=== PATIENT | male | born 1965 | race Caucasian/White ===

== ENCOUNTER 2023-12-17 11:35 | Inpatient (IN) | payer OTHER ==
[~2023-12-17] VITALS: Ht 188 cm; Wt 108.9 kg
[2023-12-17 12:30] LABS: HEMOGLOBIN. 13.6 g/dL (14.0-18.0); MEAN CORPUSCULAR HEMOGLOBIN 31.9 pg (28.0-32.0); MEAN CORPUSCULAR HGB CONC 34.1 g/dL (31.0-37.0); MEAN CORPUSCULAR VOLUME 93.5 fL (80.0-94.0); MEAN PLATELET VOLUME 7.7 fl (7.4-10.4); PLATELET 160 x1000/uL (130-400); RED BLOOD CELL COUNT 4.28 mill/uL (4.7-6.1); RED CELL DISTRIBUTION WIDTH 14.1 % (11.6-14.6); WHITE BLOOD COUNT 17.9 x1000/uL (4.5-11.0)
[2023-12-17 12:35] LABS: DIFFERENTIAL COMMENT 1
[2023-12-17] MEDS: ONDANSETRON HCL 4MG/2ML INJ IV STA (12:39)
[2023-12-17] MEDS: MORPHINE SULFATE 4 MG/ML CPJ (NOT FOR IM USE) IV STA (12:39)
[2023-12-17] MEDS: SODIUM CHLORIDE 0.9% 1,000 ML IV ONE ×2 (12:39→15:30)
[2023-12-17 12:42] LABS: PARTIAL THROMBOPLASTIN TIME 22.9 sec (23.4-31.0); PROTHROMBIN TIME 11.4 sec (9.6-11.0)
[2023-12-17 12:44] LABS: ALANINE AMINOTRANSFERASE 25 IU/L (10-49); ALBUMIN 3.8 g/dL (3.2-4.8); ASPARTATE AMINOTRANSFERASE 19 IU/L (<34); BILIRUBIN TOTAL 1.6 mg/dL (0.1-1.0); CALCIUM 8.6 mg/dL (8.7-10.4); CARBON DIOXIDE 21 mEq/L (21-32); CHLORIDE 101 mEq/L (98-107); GLUCOSE 170 mg/dL (70-105); POTASSIUM 3.2 mEq/L (3.5-5.1); SODIUM 133 mEq/L (136-145); TROPONIN I HIGH SENSITIVITY 6 ng/L (3.0-53); UREA NITROGEN BLOOD 15 mg/dL (9-23)
[2023-12-17 12:45] LABS: ETHANOL BLOOD < 10 mg/dL (<10)
[2023-12-17 13:30] LABS: PLATELET ESTIMATE NORMAL
[2023-12-17] MEDS: HYDROMORPHONE HCL/PF 2MG/ML CPJ IV ONE ×2 (14:37→16:50)
[2023-12-17] MEDS: PIPERACILLIN/TAZO 3.375G/50ML 50 ML IV SCH (15:30)
[2023-12-17] MEDS: IOHEXOL-350 100 ML BOTTLE ONE (19:47)
[2023-12-17 20:00] VITALS: BP 150/85; PULSE 99; RESP 17; TEMP 98.4
[2023-12-17] MEDS ORDERED: DEXTROSE 50% WATER 50ML SYRINGE IV PRN (21:15)
[2023-12-17] MEDS ORDERED: IPRATROPIUM/ALBUTEROL 0.5-3(2.5)MG/3ML NEB HHN PRN (21:15)
[2023-12-17 21:30] LABS: TROPONIN I HIGH SENSITIVITY 7 ng/L (3.0-53)
[2023-12-17] MEDS: POTASSIUM CHLORIDE 20MEQ TABLET SR PO NR (21:43)
[2023-12-17] MEDS ORDERED: NALOXONE HCL 0.4MG/ML VIAL IV PRN (21:45)
[2023-12-17] MEDS ORDERED: VANCOMYCIN 1.5GM/250ML IV NR (22:00)
[2023-12-17 22:13] VITALS: BP 145/89; PULSE 108; RESP 18; TEMP 98.6
[2023-12-17] MEDS: SODIUM CHLORIDE 0.9% 1,000 ML IV SCH (23:33)
[2023-12-17] MEDS ORDERED: HYDRALAZINE 20MG/ML VIAL IV PRN (23:45)
[2023-12-17] MEDS: MORPHINE SULFATE 2 MG/ML CPJ (NOT FOR IM USE) IV PRN (23:53)
[2023-12-18 01:47] LABS: BILIRUBIN DIRECT 0.4 mg/dL (<=3.0); IRON 17 ug/dL (65-175); TOTAL IRON BINDING CAPACITY 205 ug/dl (250-425)
[2023-12-18] MEDS: VANCOMYCIN 1.5GM/250ML IV NR (02:34)
[2023-12-18 02:49] LABS: CREATINE KINASE 62 IU/L (46-171); TROPONIN I HIGH SENSITIVITY 6 ng/L (3.0-53)
[2023-12-18 02:51] LABS: CREATINE KINASE MB FRACTION < 0.0 ng/mL (0.5-3.6)
[2023-12-18] MEDS ORDERED: PIPERACILLIN/TAZO 3.375G/50ML 50 ML IV SCH (06:00)
[2023-12-18] MEDS: PIPERACILLIN/TAZO 3.375G/50ML 50 ML IV SCH (06:33)
[2023-12-18] MEDS: BLOOD SUGAR DIAGNOSTIC STRIP TEST SCH (06:35)
[2023-12-18 08:00] VITALS: BP 137/80; RESP 20; TEMP 98
[2023-12-18] MEDS: PANTOPRAZOLE SODIUM 40 MG/VIAL IV SCH (09:00)
[2023-12-18] MEDS: ENOXAPARIN 40MG/0.4ML SYR SUBCUT SCH (09:24)
[2023-12-18 11:00] LABS: BILIRUBIN DIRECT 0.5 mg/dL (<=3.0); CHOLESTEROL 143 mg/dL (<200); CREATINE KINASE 55 IU/L (46-171); HDL CHOLESTEROL 52 mg/dL (>55); LDL CHOLESTEROL 76 mg/dL (5-100); PHOSPHORUS 1.8 mg/dL (2.5-4.9); T4 FREE 1.17 ng/dL (0.89-1.76); THYROID STIMULATING HORMONE 2.92 uIU/mL (0.55-4.78); TRIGLYCERIDE 56 mg/dL (0-150); TROPONIN I HIGH SENSITIVITY 5 ng/L (3.0-53)
[2023-12-18 11:02] LABS: CREATINE KINASE MB FRACTION < 0.0 ng/mL (0.5-3.6)
[2023-12-18] MEDS: VANCOMYCIN 1G PREMIX 200 ML IV SCH (11:59)
[2023-12-18 12:00] VITALS: BP 128/82; PULSE 98; RESP 20; TEMP 98.3
[2023-12-18 15:50] LABS: FERRITIN 279 ng/mL (22-322); FOLIC ACID (FOLATE) SERUM 4.28 ng/mL (>5.38); HEPATITIS A AB IGM NEGATIVE (Negative); HEPATITIS B CORE AB IGM NEGATIVE (Negative); HEPATITIS B SURFACE ANTIGEN NEGATIVE (Negative); HEPATITIS C AB NON REACTIVE (Neg) (Negative); VITAMIN B12 SERUM 257 pg/mL (211-911)
[2023-12-18] MEDS ORDERED: VANCOMYCIN 1G PREMIX 200 ML IV SCH (16:00)
[2023-12-18 20:00] VITALS: BP 149/77; PULSE 111; RESP 20; TEMP 101.7
[2023-12-18] MEDS ORDERED: ACETAMINOPHEN 650MG SUPP PR PRN (20:45)
[2023-12-19] VITALS: BP 133/83; PULSE 110; RESP 20; TEMP 98.8
[2023-12-19 04:00] VITALS: BP 138/88; PULSE 112; RESP 20; TEMP 98.8
[2023-12-19] MEDS: PIPERACILLIN/TAZO 3.375G/50ML 50 ML IV SCH (06:06)
[2023-12-19 06:59] LABS: HEMATOCRIT. 37.2 % (42.0-52.0); HEMOGLOBIN. 12.9 g/dL (14.0-18.0); MEAN CORPUSCULAR HEMOGLOBIN 32.2 pg (28.0-32.0); MEAN CORPUSCULAR HGB CONC 34.8 g/dL (31.0-37.0); MEAN CORPUSCULAR VOLUME 92.5 fL (80.0-94.0); MEAN PLATELET VOLUME 8.5 fl (7.4-10.4); PLATELET 157 x1000/uL (130-400); RED BLOOD CELL COUNT 4.02 mill/uL (4.7-6.1); WHITE BLOOD COUNT 16.8 x1000/uL (4.5-11.0)
[2023-12-19 07:03] LABS: DIFFERENTIAL COMMENT 1
[2023-12-19 07:07] LABS: ALANINE AMINOTRANSFERASE 14 IU/L (10-49); ALBUMIN 3.6 g/dL (3.2-4.8); ASPARTATE AMINOTRANSFERASE 13 IU/L (<34); BILIRUBIN TOTAL 1.1 mg/dL (0.1-1.0); CALCIUM 8.7 mg/dL (8.7-10.4); CARBON DIOXIDE 25 mEq/L (21-32); CHLORIDE 100 mEq/L (98-107); GLUCOSE 102 mg/dL (70-105); POTASSIUM 3.7 mEq/L (3.5-5.1); PROTEIN TOTAL 6.3 g/dL (6.0-8.3); SODIUM 131 mEq/L (136-145); UREA NITROGEN BLOOD 15 mg/dL (9-23)
[2023-12-19] MEDS: DEXT 5%/LACTATED RINGERS 1,000 ML IV SCH (09:22)
[2023-12-19 12:00] VITALS: BP_SYST 117; BP_SYST 142; BP_DIAS 78; BP_DIAS 82; PULSE 101; PULSE 94; RESP 20; TEMP 97; TEMP 98.4
[2023-12-19] MEDS: DEXT 5%/0.9% NACL 1,000 ML IV SCH (13:19)
[2023-12-19 15:19] LABS: PLATELET ESTIMATE NORMAL
[2023-12-19 16:00] VITALS: BP 129/82; PULSE 95; RESP 20; TEMP 98
[2023-12-19] MEDS: KETOROLAC 15MG/ML VIAL IV PRN (19:55)
[2023-12-19 20:00] VITALS: BP 146/90; PULSE 101; RESP 20; TEMP 99.6
[2023-12-20] VITALS: BP 129/79; PULSE 80; RESP 19; TEMP 98.7
[2023-12-20 04:00] VITALS: BP 132/88; PULSE 88; RESP 20; TEMP 99.8
[2023-12-20 05:56] LABS: ALANINE AMINOTRANSFERASE 14 IU/L (10-49); ALBUMIN 3.4 g/dL (3.2-4.8); ASPARTATE AMINOTRANSFERASE 16 IU/L (<34); CALCIUM 8.4 mg/dL (8.7-10.4); CARBON DIOXIDE 26 mEq/L (21-32); CHLORIDE 103 mEq/L (98-107); CREATININE 0.9 mg/dL (0.6-1.3); GLUCOSE 111 mg/dL (70-105); POTASSIUM 3.4 mEq/L (3.5-5.1); PROTEIN TOTAL 6.3 g/dL (6.0-8.3); SODIUM 134 mEq/L (136-145); UREA NITROGEN BLOOD 16 mg/dL (9-23)
[2023-12-20 06:42] LABS: HEMATOCRIT. 35.3 % (42.0-52.0); HEMOGLOBIN. 12.2 g/dL (14.0-18.0); MEAN CORPUSCULAR HEMOGLOBIN 31.9 pg (28.0-32.0); MEAN CORPUSCULAR HGB CONC 34.5 g/dL (31.0-37.0); MEAN CORPUSCULAR VOLUME 92.4 fL (80.0-94.0); MEAN PLATELET VOLUME 8.1 fl (7.4-10.4); PLATELET 163 x1000/uL (130-400); RED BLOOD CELL COUNT 3.82 mill/uL (4.7-6.1); RED CELL DISTRIBUTION WIDTH 13.8 % (11.6-14.6); WHITE BLOOD COUNT 9.5 x1000/uL (4.5-11.0)
[2023-12-20 06:46] LABS: DIFFERENTIAL COMMENT 1
[2023-12-20 08:00] VITALS: BP 114/71; PULSE 78; RESP 18; TEMP 97.7
[2023-12-20 12:00] VITALS: BP 130/82; PULSE 84; RESP 18; TEMP 97.7
[2023-12-20] MEDS ORDERED: LIDOCAINE HCL 1% 20ML VIAL (Pyxis) INJ ONE (14:36)
[2023-12-20] MEDS ORDERED: SKIN ADHESIVE 0.7 GM EA TOP ONE (14:36)
[2023-12-20] MEDS ORDERED: BUPIVACAINE HCL/PF 0.5% (5MG/ML) 10ML ONE (14:36)
[2023-12-20 15:54] LABS: PLATELET ESTIMATE NORMAL
[2023-12-20 16:00] VITALS: BP 117/75; PULSE 81; RESP 18; TEMP 96.6
[2023-12-20 20:00] VITALS: BP 139/84; PULSE 63; RESP 19; TEMP 99.7
[2023-12-20] MEDS ORDERED: PROPOFOL 200MG/20ML VIAL IV ONE (20:30)
[2023-12-20] MEDS ORDERED: FENTANYL CITRATE/PF 50MCG/ML 2ML VIAL ONE (20:32)
[2023-12-20] MEDS ORDERED: MIDAZOLAM HCL 2 MG/2 ML VIAL ONE (20:32)
[2023-12-20] MEDS ORDERED: PHENYLEPHRINE HCL 10 MG/ML 1ML (IV VIAL) IV ONE (20:34)
[2023-12-20] MEDS ORDERED: ROCURONIUM BROMIDE 10MG/ML VIAL 5ML IV ONE (20:34)
[2023-12-20] MEDS ORDERED: SUCCINYLCHOLINE CHLORIDE 200MG/10ML IV ONE (20:34)
[2023-12-20] MEDS ORDERED: ONDANSETRON HCL 4MG/2ML INJ ONE (20:56)
[2023-12-20] MEDS ORDERED: DEXAMETHASONE 4MG/ML 1ML VIAL ONE (20:56)
[2023-12-20] MEDS ORDERED: GLYCOPYRROLATE 0.2 MG/ML 2ML VIAL ONE ×2 (20:57→22:46)
[2023-12-20] MEDS ORDERED: NEOSTIGMINE METHYLSULFATE 1MG/ML 10 ML VIAL ONE (20:57)
[2023-12-20] MEDS ORDERED: FENTANYL CITRATE/PF 50MCG/ML 2ML VIAL IV PRN (21:15)
[2023-12-20] MEDS ORDERED: ONDANSETRON HCL 4MG/2ML INJ IV PRN (21:15)
[2023-12-20] MEDS ORDERED: MEPERIDINE HCL/PF 25MG/ML CPJ IV PRN (21:15)
[2023-12-20] MEDS ORDERED: HYDROMORPHONE HCL/PF 2MG/ML CPJ IV PRN (21:15)
[2023-12-20] MEDS ORDERED: HYDROMORPHONE HCL/PF 2MG/ML CPJ ONE (21:24)
[2023-12-20] MEDS ORDERED: KETOROLAC 30MG/ML VIAL ONE (21:55)
[2023-12-21] VITALS (19 sets, daily range): BP systolic 108–134; BP diastolic 66–81; PULSE 72–88; RESP 14–20; TEMP 97.5–99.7
[2023-12-21] MEDS ORDERED: MORPHINE SULFATE 2 MG/ML CPJ (NOT FOR IM USE) IV PRN
[2023-12-21] MEDS ORDERED: MORPHINE SULFATE 4 MG/ML CPJ (NOT FOR IM USE) IV PRN
[2023-12-21 07:16] LABS: HEMATOCRIT. 34.8 % (42.0-52.0); MEAN CORPUSCULAR HGB CONC 34.5 g/dL (31.0-37.0); MEAN CORPUSCULAR VOLUME 92.5 fL (80.0-94.0); MEAN PLATELET VOLUME 7.5 fl (7.4-10.4); PLATELET 192 x1000/uL (130-400); RED BLOOD CELL COUNT 3.76 mill/uL (4.7-6.1); RED CELL DISTRIBUTION WIDTH 13.8 % (11.6-14.6); WHITE BLOOD COUNT 11.4 x1000/uL (4.5-11.0)
[2023-12-21 07:41] LABS: DIFFERENTIAL COMMENT 1
[2023-12-21 08:43] LABS: ALANINE AMINOTRANSFERASE 23 IU/L (10-49); ALBUMIN 3.3 g/dL (3.2-4.8); ASPARTATE AMINOTRANSFERASE 28 IU/L (<34); BILIRUBIN TOTAL 0.7 mg/dL (0.1-1.0); CALCIUM 8.4 mg/dL (8.7-10.4); CARBON DIOXIDE 27 mEq/L (21-32); CHLORIDE 105 mEq/L (98-107); CREATININE 0.9 mg/dL (0.6-1.3); GLUCOSE 136 mg/dL (70-105); PROTEIN TOTAL 6.3 g/dL (6.0-8.3); SODIUM 139 mEq/L (136-145); UREA NITROGEN BLOOD 21 mg/dL (9-23)
[2023-12-21] MEDS ORDERED: LIDOCAINE HCL 1% 10 MG/ML 10ML VIAL ONE (13:37)
[2023-12-21] MEDS ORDERED: IOHEXOL-300 50 ML BOTTLE IV ONE (13:38)
[2023-12-21] MEDS ORDERED: FENTANYL CITRATE/PF 50MCG/ML 2ML VIAL ONE (13:44)
[2023-12-21] MEDS: FENTANYL CITRATE/PF 50MCG/ML 2ML VIAL IV ONE (13:55)
[2023-12-21 18:39] LABS: PLATELET ESTIMATE NORMAL
[2023-12-21] MEDS: KETOROLAC 15MG/ML VIAL IV PRN (20:42)
[2023-12-22] VITALS: BP 131/77; PULSE 79; RESP 18; TEMP 98.1
[2023-12-22 04:00] VITALS: BP 128/83; PULSE 79; RESP 16; TEMP 98.1
[2023-12-22 07:34] LABS: CALCIUM 8.2 mg/dL (8.7-10.4); CARBON DIOXIDE 28 mEq/L (21-32); CHLORIDE 105 mEq/L (98-107); CREATININE 0.9 mg/dL (0.6-1.3); GLUCOSE 108 mg/dL (70-105); POTASSIUM 3.2 mEq/L (3.5-5.1); SODIUM 140 mEq/L (136-145); UREA NITROGEN BLOOD 17 mg/dL (9-23)
[2023-12-22 07:47] LABS: HEMATOCRIT. 35.2 % (42.0-52.0); HEMOGLOBIN. 11.8 g/dL (14.0-18.0); MEAN CORPUSCULAR HEMOGLOBIN 31.1 pg (28.0-32.0); MEAN CORPUSCULAR HGB CONC 33.6 g/dL (31.0-37.0); MEAN CORPUSCULAR VOLUME 92.4 fL (80.0-94.0); MEAN PLATELET VOLUME 7.5 fl (7.4-10.4); PLATELET 235 x1000/uL (130-400); RED BLOOD CELL COUNT 3.81 mill/uL (4.7-6.1); RED CELL DISTRIBUTION WIDTH 14.2 % (11.6-14.6); WHITE BLOOD COUNT 6.4 x1000/uL (4.5-11.0)
[2023-12-22 07:51] LABS: DIFFERENTIAL COMMENT 1
[2023-12-22 08:00] VITALS: BP 138/78; PULSE 74; RESP 18; TEMP 97.9
[2023-12-22] MEDS: FAMOTIDINE 20MG/2ML VIAL IV SCH (09:16)
[2023-12-22] MEDS ORDERED: METR-167 MT (09:55)
[2023-12-22] MEDS ORDERED: IBUP-2029 MT (09:55)
[2023-12-22] MEDS ORDERED: PANT40SU PO (09:55)
[2023-12-22] MEDS ORDERED: CIPR500S3 PO (09:55)
[2023-12-22 12:00] VITALS: BP 145/86; PULSE 73; RESP 18; TEMP 99.1
[2023-12-22 17:23] VITALS: BP 126/70; PULSE 63; TEMP 97.9; O2SAT 96
[2023-12-22 21:21] LABS: PLATELET ESTIMATE NORMAL
== END 2023-12-22 19:31 | disposition home or self-care (01) | DRG 854 ==
LOC: ER 11:35 → EDBEDREQ 16:31 → 8WST 19:23 → EDBEDREQ 19:27 → ER 22:09 → 8WST 12-19 08:44
PROVIDERS: ADMIT Internal Medicine; ATTEND Internal Medicine
PROC: 0F9440Z Drainage of Gallbladder with Drainage Device, Percutaneous Endoscopic Approach (ICD-10-PCS; principal; 2023-12-20)
DX: A41.9 Sepsis, unspecified organism (principal); E87.1 Hypo-osmolality and hyponatremia; K81.0 Acute cholecystitis; D64.9 Anemia, unspecified; E87.6 Hypokalemia; K81.1 Chronic cholecystitis; N28.1 Cyst of kidney, acquired; E83.51 Hypocalcemia; R03.0 Elevated blood-pressure reading, without diagnosis of hypertension; R73.9 Hyperglycemia, unspecified; E80.6 Other disorders of bilirubin metabolism; Z79.899 Other long term (current) drug therapy
CPT/HCPCS: 36415; 47490; 71045; 71275; 74174; 76700; 78227; 80048; 80053; 80061; 80202; 80320; 82248; 82306; 82550; 82553; 82607; 82728; 82746; 82803; 82962; 83036; 83540; 83550; 83605; 83735; 83880; 83930; 84100; 84145; 84439; 84443; 84484; 85025; 85651; 86705; 86709; 86850; 86900; 87340; 93005; 93306; 93970; 99152; 99153; 99291; A9537; C1729; C1760; C1769; C9113; J0330; J1100; J1170; J1650; J1885; J2250; J2270; J2370; J2405; J2543; J2704; J2710; J3010; J3370; J3490; J7030; J7042; J7120; Q9967; G0480; G0500